=== PATIENT | female | born 1960 | race Caucasian/White ===

== ENCOUNTER 2024-07-30 06:52 | Day surgery (SDC) | payer OTHER, BC ==
[2024-07-16 13:25] VITALS: BMI 20.8
[2024-07-30 11:30] VITALS: TEMP 98.3
[2024-07-30 11:37] VITALS: RESP 18
[2024-07-30 13:17] VITALS: BP 110/69; PULSE 81
== END 2024-07-30 12:21 | disposition home or self-care (01) ==
LOC: JASU-ENDO 06:52
PROVIDERS: ATTEND Internal Medicine Gastroenterology
PROC: 0DBL8ZX Excision of Transverse Colon, Via Natural or Artificial Opening Endoscopic, Diagnostic (ICD-10-PCS; 2024-07-30)
PROC: 0DBN8ZX Excision of Sigmoid Colon, Via Natural or Artificial Opening Endoscopic, Diagnostic (ICD-10-PCS; 2024-07-30)
PROC: 0DBK8ZX Excision of Ascending Colon, Via Natural or Artificial Opening Endoscopic, Diagnostic (ICD-10-PCS; principal; 2024-07-30 11:00)
DX: Z12.11 Encounter for screening for malignant neoplasm of colon (principal); D12.2 Benign neoplasm of ascending colon; D12.3 Benign neoplasm of transverse colon; D12.5 Benign neoplasm of sigmoid colon; K57.30 Diverticulosis of large intestine without perforation or abscess without bleeding
CPT/HCPCS: 88305-TC